=== PATIENT | female | born 1980 | race Caucasian/White ===

== ENCOUNTER 2019-11-16 04:41 | Emergency (ER) | payer MEDICAID ==
[~2019-11-16] VITALS: Ht 167.6 cm; Wt 72.6 kg
[2019-11-16 04:53] VITALS: Ht 167.6 cm; Wt 72.6 kg
[2019-11-16 06:16] VITALS: BP 142/86
[2019-11-16 09:08] LABS: UA SPECIFIC GRAVITY 1.015 (1.005-1.035); microscopic required? YES; urine erythrocyte 1+ (NEGATIVE)
== END 2019-11-16 06:17 | disposition home or self-care (01) ==
LOC: ED 04:41
PROVIDERS: Student in an Organized Health Care Education/Training Program
DX: B37.3 Candidiasis of vulva and vagina (principal); N76.0 Acute vaginitis
CPT/HCPCS: 87491; 87591